=== PATIENT | male | born 1990 | race Caucasian/White ===

== ENCOUNTER 2018-07-03 05:23 | Emergency (ER) | payer OTHER ==
[~2018-07-03] VITALS: Ht 182.9 cm; Wt 131.4 kg
[2018-07-03 06:25] VITALS: BP 139/74
== END 2018-07-03 06:27 | disposition home or self-care (01) ==
LOC: ED 05:57
DX: Z77.21 Contact with and (suspected) exposure to potentially hazardous body fluids (principal); I10 Essential (primary) hypertension
CPT/HCPCS: 36415; 84460; 86706; 86803; 87806; 99284; G0475